=== PATIENT | male | born 1995 | race African-American/Black ===

== ENCOUNTER → 2023-09-06 14:29 | Outpatient (CLI) | payer OTHER, SELFPAY ==
--- NOTE | 2023-09-06 | DI.RAD.S_ITS ---
PROCEDURE: XR HAND RT 2V INDICATIONS: Fracture of unspecified phalanx of right middle finger, init TECHNIQUE: 2 views of the hand(s) acquired. COMPARISON: None. FINDINGS: Bones: No fractures or dislocations. Carpal bones are normally aligned. No suspicious bony lesions. Soft tissues: No suspicious soft tissue calcifications. IMPRESSION: No acute radiographic findings. If pain persists, followup imaging in 5-7 days is recommended to exclude occult fracture. Dictated by: Rosi Altman M.D. on 09/06/2023 at 16:36 Approved by: Rosi Altman M.D. on 09/06/2023 at 16:37
== END ==
PROVIDERS: Referring Provider Chiropractor; Visit Provider Chiropractor
DX: S62.602A Fracture of unspecified phalanx of right middle finger, initial encounter for closed fracture (principal); X58.XXXA Exposure to other specified factors, initial encounter
CPT/HCPCS: 73120